=== PATIENT | male | born 1945 | race Caucasian/White ===

== ENCOUNTER 2016-11-30 15:02 | Emergency (ER) | payer OTHER, MEDICARE ==
[2017-05-31] MEDS ORDERED: ZYRTEC10 MG PO (18:28)
[2017-05-31] MEDS ORDERED: HCTZ12.5 MG PO (18:28)
[2017-05-31] MEDS ORDERED: PRINIVIL10 MG PO (18:28)
[2017-05-31] MEDS ORDERED: LORAZEPAM2 MG PO (18:29)
[2017-05-31] MEDS ORDERED: VITAMIN B-12500 MCG PO (18:29)
[2017-05-31] MEDS ORDERED: KEPPRA500 MG PO (18:30)
[2017-05-31] MEDS ORDERED: CELEXA20 MG PO (18:30)
[2017-05-31] MEDS ORDERED: ASPIRIN CHEWABL81 MG PO (18:30)
[2017-05-31] MEDS ORDERED: MYLANTA PO (18:31)
[2017-05-31] MEDS ORDERED: MILK OF MA400 MG/5 M PO (18:31)
[2017-05-31] MEDS ORDERED: ACETAMINOPHEN325 MG PO (18:32)
[2017-05-31] MEDS ORDERED: XOPENEX (11.25 MG/3 NEB (18:32)
[2017-05-31] MEDS ORDERED: COLACE100 MG PO (18:33)
[2017-05-31] MEDS ORDERED: TYLENOL650 MG PR (18:33)
[2017-05-31] MEDS ORDERED: ATROVENT (00.2 MG/ML INH ×2 (18:33→18:35)
[2017-05-31] MEDS ORDERED: XOPENEX (11.25 MG/3 INH (18:34)
[2017-05-31] MEDS ORDERED: PROTONIX 40MG T40 MG PO (18:34)
[2017-05-31] MEDS ORDERED: NORCO 5-325 TA1 EACH PO (18:34)
[2017-05-31] MEDS ORDERED: LOVENOX40 MG/0.4 SQ (18:35)
== END 2016-11-30 16:09 | disposition home or self-care (01) ==
LOC: FER 15:02
DX: Z48.02 Encounter for removal of sutures (principal); I10 Essential (primary) hypertension
CPT/HCPCS: 99281